=== PATIENT | female | born 1995 | race Caucasian/White ===

== ENCOUNTER 2020-10-11 11:51 | Emergency (ER) | payer SELFPAY ==
--- NOTE | 2020-10-11 11:58 | ED.GENADULT ---
HPI - General Adult General Chief complaint: Skin/Abscess/Foreign Body Stated complaint: Pos skin abcess Time Seen by Provider: 10/11/20 11:59 Source: patient Mode of arrival: ambulatory Limitations: no limitations History of Present Illness HPI narrative: 25-year-old female patient presents to the [facility] with complaints of a wound to the perineum area the past 2 days. Patient states is very sore and feels like it is getting worse. Denies any concerns for STDs at the time. Patient states she has had one of the sores previously in her rectum area. Related Data Allergies Allergy/AdvReac Type Severity Reaction Status Date / Time No Known Allergies Allergy Verified 10/11/20 12:04 Review of Systems Review of Systems: Narrative: CONSTITUTIONAL: Denies fever, chills, or sweats. EYES: Denies visual changes, redness, or discharge. ENT: Denies rhinorrhea, congestion, sore throat, or otalgia. CARDIOVASCULAR: Denies chest pain, palpitations, or edema. RESPIRATORY: Denies cough or dyspnea. GASTROINTESTINAL: Denies abdominal pain, nausea, vomiting, or diarrhea. GENITOURINARY: Denies dysuria or hematuria. SKIN: Denies rash or itching. Positive wound to perineal area x2 days MUSCULOSKELETAL: Denies back pain, joint pain, or myalgia. NEUROLOGIC: Denies headache, numbness, or weakness. PSYCHIATRIC: Denies anxiety or depression. PMFSH Comments At the time of my signature I agree with nursing past medical history, surgical, social, and family history. There is no relevant family history pertinent to the presenting complaint. Exam Narrative: Exam Narrative: GENERAL: Well-appearing, well-nourished, and in no acute distress. HEAD: Normocephalic, atraumatic. EYES: PERRLA and EOMI. ENT: Nares clear, no rhinorrhea or epistaxis. Mucous membranes moist. NECK: Supple. No lymphadenopathy CHEST: Clear to auscultation. No respiratory distress. HEART: Regular rate and rhythm. No murmur heard. Normal peripheral pulses. ABDOMEN: Soft, nontender, nondistended, normal active bowel sounds. EXTREMITIES: Normal range of motion. No edema. SKIN: Warm, dry, no rash. Patient has approximately 4 cm circular abscess noted between the rectum and the vaginal area in the perineum. There is no obvious drainage noted at this time the area is firm and erythemic with warmth present. NEURO: No focal deficits. Alert and oriented x3. Course Vital Signs Vital signs: Vital Signs Temperature 37.3 C 10/11/20 12:01 Pulse Rate 128 H 10/11/20 12:01 Respiratory Rate 16 10/11/20 12:01 Blood Pressure 152/85 H 10/11/20 12:01 Pulse Oximetry 99 10/11/20 12:01 Temperature 37.3 C 10/11/20 12:01 Pulse Rate 128 H 10/11/20 12:01 Respiratory Rate 16 10/11/20 12:01 Blood Pressure 152/85 H 10/11/20 12:01 Pulse Oximetry 99 10/11/20 12:01 Vital signs reviewed The patient has been informed that they may have pre-hypertension or Hypertension based on a BP reading in the department. I recommend that the patient call the primary care provider listed on their discharge instructions or a physician of their choice this week to arrange follow up for further evaluation of possible pre-hypertension or Hypertension Procedures Abscess I/D bartholin's gland: Date of Incision: 10/11/20 Time of Incision: 12:13 Side (if applicable): left Sedation/analgesia: none Local Anesthetic: lidocaine 1% Amount of anesthesia used (mL): 3.5 Technique: incised with #11 blade Irrigation: Yes Packing used?: none I&D Results: Pus and Blood Abcess I&D Additional Comments: The procedure was explained and verbal consent is obtained. The wound was anesthetized with 3.5ml of 1% lidocaine with good anesthesia. Sterile drape and prep are done. The fluctuant center was incised with #11 blade scalpel. A large amount of yellow pus and blood was expressed. The wound was probed for loculated area and irrigated with normal saline
[2020-10-11 12:01] VITALS: BP 152/85; PULSE 128; RESP 16; TEMP 37.3; O2SAT 99
== END 2020-10-11 12:33 | disposition home or self-care (01) ==
PROVIDERS: Emergency Provider Nurse Practitioner Family
DX: N75.0 Cyst of Bartholin's gland (principal); Z86.14 Personal history of Methicillin resistant Staphylococcus aureus infection
CPT/HCPCS: 56420; 87070; 87075; 87076; 87185; 87205; 99213; G0463

== ENCOUNTER 2025-01-29 01:02 | Emergency (ER) | payer OTHER, SELFPAY ==
[2025-01-29] VITALS (49 sets, daily range): BP systolic 106–150; BP diastolic 63–87; PULSE 63–124; RESP 13–26; TEMP 36.2–36.8; O2SAT 98–100
--- OUTSIDE RECORDS SUMMARY | 2025-01-29 01:04 | XMS_ITS | Clinical Summary ---
Author Organization [facility] Virtual Care Address [address] [place] [phone] Phone Care Team Providers Care Coning Machine Operator Name Role Phone Amelia Duckworth MD Primary Care Provider [phone] Allergies No known active allergies Medications erythromycin-chen zoyl peroxide (BENZAMYCIN) gel 06/21/2023 Ac tive buPROPion XL (WELLBUTRIN XL) 300 mg 24 hr tablet Take 1 tablet (300 mg total) by mouth daily 10/10/2024 Active Active Problems Problem Noted Date Diagnosed Date Acute intractable headache 03/21/2020 Social History Tobacco Use Types Packs/Day Years Used Date Smoking Tobacco: Never Smokeless Tobacco: Never Tobacco Cessation:Counseling Given: Not Answered Comments Unknown Sex and Gender Information Value Date Recorded Sex Assigned at Not on file 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 Gender Identity Not on file Sexual Orientation Not on file Obstetrics History Last Filed Vital Signs Vital Sign Reading Time Taken Comments Blood Pressure 133/75 10/22/2024 9:31 AM CDT Pulse 72 10/22/2024 9:31 AM CDT Temperature 36.6 C (97.8 F) 10/22/2024 9:31 AM CDT Respiratory Rate 20 10/22/2024 9:31 AM CDT Oxygen Saturation 96% 10/22/2024 9:31 AM CDT Inhaled Oxygen Concentration - - Weight 117 kg (258 lb) 10/22/2024 9:31 AM CDT Height 180.3 cm (5' 11) 10/22/2024 9:31 AM CDT Body Mass Index 35.98 10/22/2024 9:31 AM CDT Plan of Treatment Health Maintenance Due Date Last Done Comments Cervical Cancer Screening 1993 Depression Screening 1993 Hepatitis C Screening 1993 DTaP/Tdap/Td Vaccine (1 - Tdap) 2004 Varicella Vaccines (1 of 2 - 13+ 2-dose series) 2006 Hepatitis B Screening 2011 Regular Well Visit/Exam 18-64 2011 HPV Vaccines (1 - 3-dose SCD M series) 2020 Covid-19 Vaccine (3 - 2023-2 5 season) 2024 02/07/2021, 01/10/2021 Influenza Vaccine (#1) 2025 , 05/18/2022 Pneumococcal vaccine <65 Aged Out No longer eligible based on patient's age to complete this topic Insurance [employer] [employer] Address: [address] [phone] Care Teams Coning Machine Operator Relationship Specialty Start Date End Date Amelia Duckworth MD [address] [place] [id number] PCP - General Emergency Medicine 07/23/23
--- OUTSIDE RECORDS SUMMARY | 2025-01-29 01:04 | XMS_ITS | Clinical Summary ---
Author Organization [facility] [employer] Address [address] [place] [address] Care Team Providers Care Sales Order Administrator Name Role Phone Peyton Bojorquez APRN-TARRING MACHINE OPERATOR Unavailable Unavailable Source Comments [facility] [employer],non-owned Affiliates and Associated Physician Practices is amultiple site organization consisting of ambulatory clinics and hospital sitesin [place], [place], [place] and [place]. This disclosure is being madepursuant to the Care Everywhere program and may not contain all information available regarding this patient. Last updated 18.[facility] [employer] Allergies No known active allergies Medications * Be aware that medications may not be up to date on this document. Alwaysverify current medications with the patient. fluticasone propionate (FLONASE) 50 MCG/ACT nasal spray [place] 2 sprays into each nostril once daily Discontinue when symptoms resolve. 16 g 0 Active ibuprofen (MOTRIN) 800 MG tablet Take 1 tablet by mouth every 8 hours as needed for Pain (Take with food.) 30 tablet 0 Active HYDROcodone-mauro taminophen (NORCO) 5-325 MG tablet Take 1 tablet by mouth 2 times daily as needed for Pain 6 tablet 0 Active Active Problems Problem Noted Date Diagnosed Date Acute intractable headache 03/21/2020 Resolved Problems Problem Noted Date Diagnosed Date Resolved Date Acute otitis media 03/21/2020 0 Social History Tobacco Use Types Packs/Day Years Used Date Smoking Tobacco: Former Cigarettes Smokeless Tobacco: Never Alcohol Use Standard Drinks/Week Comments No 0 (1 standard drink = 0.6 oz pur e alcohol) Comments No Sex and Gender Information Value Date Recorded Sex Assigned at Not on file 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 Gender Identity Not on file Sexual Orientation Not on file Last Filed Vital Signs Vital Sign Reading Time Taken Comments Blood Pressure 140/84 03/21/2020 6:04 PM CDT Pulse 88 03/21/2020 6:04 PM CDT Temperature 36.7 C (98.1 F) 03/21/2020 6:04 PM CDT Respiratory Rate 18 03/21/2020 6:04 PM CDT Oxygen Saturation 100% 03/21/2020 6:04 PM CDT Inhaled Oxygen Concentration - - Weight 101.2 kg (223 lb) 03/21/2020 6:04 PM CDT Height 182.9 cm (6') 03/21/2020 6:04 PM CDT Body Mass Index 30.24 03/21/2020 6:04 PM CDT Plan of Treatment Health Maintenance Due Date Last Done Comments HIV SCREENING 2008 HEPATITIS C SCREENING 02/27/2011 DTAP/TDAP/TD VACCINES (1 - Tdap) 2012 HEPATITIS B VACCINE (1 of 3 - 19+ 3-dose series) 2012 HPV VACCINE (1 - 3-dose SCDM series) 2020 COVID-19 VACCINE (1 - 2023-2 5 season) 2024 DEPRESSION SCREENING 06/21/2024 INFLUENZA VACCINE (#1) 2025 ZOSTER VACCINE (1 of 2) 2043 HIB VACCINE Aged Out No longer eligi ble based on patient's age to complete this topic MENINGOCOCCAL (Group B) VACC INE SHARED DECISION-MAKING Aged Out No longer eligibl e based on patient's age to complete this topic MENINGOCOCCAL GROUPS A/C/Y/W VACCINE Aged Out No longer eligible b ased on patient's age to complete this topic PNEUMOCOCCAL VACCINE Aged Out No long er eligible based on patient's age to complete this topic Care Teams Sales Order Administrator Relationship Specialty Start Date End Date Peyton Bojorquez APRN-JOSE G Nurse Practitioner 06/28/14
--- NOTE | 2025-01-29 02:07 | ECG_ITS ---
Test Date: 2025-01-29 02:25:24 Measurements Intervals [place] Rate: 87 P: 15 IN: 143 QRS: 20 QRSD: 90 T: 19 QT: 381 QTc: 460 Interpretive Statements SINUS RHYTHM DELAYED PRECORDIAL R/S TRANSITION BASELINE ARTIFACT- I, II, III, AVR, AVL, AVF, V1-V6 BORDERLINE ECG No previous ECG available for comparison Electronically Signed On 01-29-2025 06:17:57 CDT by Sherwin Boyd D.O.
--- NOTE | 2025-01-29 02:14 | PC.NURSE ---
This RN called and spoke to Anisa from Poison Control and informed of pt condition. This RN was instructed to get an EKG q6hr, draw labs, preg test and to monitor for 18 hours at time of ingestion. This RN was also instructed to monitor for seizures. A fax was sent over more information. EDP notified.
[2025-01-29 02:22] LABS: Hematocrit 41.0 % (37.0-47.0); Hemoglobin 12.7 g/dL (12.0-15.0); Immature Granulocyte Percent A 0.2 % (0-0.5); Lymphocytes Absolute Auto 1.90 K/mm3 (0.9-3.2); Mean Corpuscular HGB Conc 31.0 g/dl (32-36); Mean Corpuscular Hemoglobin 26.1 pg (26-34); Mean Corpuscular Volume 84.2 fl (80-100); Nucleated Red Blood Cells Absolute Auto 0.000 K/mm3 (0.0-0.012); Nucleated Red Blood Cells Perc 0.0 % (0.0-0.2); Platelet Count Result 249 k/mm3 (150-375); Red Blood Count 4.87 M/mm3 (4.2-5.4); White Blood Count 8.2 K/mm3 (4.5-10.0)
--- OUTSIDE RECORDS SUMMARY | 2025-01-29 02:25 | XMS_ITS | Clinical Summary ---
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
--- OUTSIDE RECORDS SUMMARY | 2025-01-29 02:25 | XMS_ITS | Clinical Summary ---
Author Organization [facility] [employer] Address [address] [place] [address] Care Team Providers Care Strategy Specialist Name Role Phone Peyton Bojorquez APRN-OPERATOR TECHNICIAN Unavailable Unavailable Source Comments [facility] [employer],non-owned Affiliates and Associated Physician Practices is amultiple site organization consisting of ambulatory clinics and hospital sitesin [place], [place], [place]. This disclosure is being madepursuant to the Care Everywhere program and may not contain all information available regarding this patient. Last updated 18.[facility] [employer] Allergies No known active allergies Medications * Be aware that medications may not be up to date on this document. Alwaysverify current medications with the patient. 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
[2025-01-29 02:26] LABS: BEDSIDEPREGUCG Negative (Negative)
--- NOTE | 2025-01-29 02:26 | PC.NURSE ---
Poison control said pt is below toxic level. 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
[2025-01-29 02:29] LABS: Add Urine Microscopic? NO; Appearance Urine Clear (Clear); Glucose Urine UA Negative (Negative); Leukocyte Esterase Ur Negative LEU/UL (Negative); Nitrate Urine Negative (Negative); Specific Grav Ur 1.011 (1.001-1.035)
--- NOTE | 2025-01-29 02:40 | ED.OVERDOSE ---
HPI - Overdose General Chief Complaint: Overdose <Miguel A Wallace MD - Last Filed: 01/29/25 07:13> Stated Complaint: i think i took 4 extra wellbutrin <Miguel A Wallace MD - Last Filed: 01/29/25 07:13> Time Seen by Provider: 01/29/25 01:48 <Miguel A Wallace MD - Last Filed: 01/29/25 07:13> History of Present Illness HPI Narrative: 29-year-old female with history of depression for which he takes Wellbutrin. Patient presents to the emergency department after thinking she accidentally took too much of her home Wellbutrin instead of her Tylenol/ibuprofen at home. She states she keeps her medications in the same compartment and took 4 pills and this happened approximately 7:00 p.m.. She potentially ingested for extended release Wellbutrin 300 mg tablets although she states that they might have been some ibuprofen instead. She took total of 4 tablets nonetheless. She called poison Control and was told to come to the hospital. She has no symptoms at this time and otherwise feels well. Denies any chest pain, shortness a breath, nausea vomiting, fever, chills, headache, tremulousness or shaking, twitching. No other co ingestions. Denies suicidality or homicidality. No psychiatric symptoms. <Miguel A Wallace MD - Last Filed: 01/29/25 07:13> Related Data Home Medications: Home Medications ?Medication ?Instructions ?Recorded ?Confirmed ?Last Taken ?Type bupropion HCl 300 mg 24 hr tablet, mg PO 01/29/25 Unknown History extended release <Miguel A Wallace MD - Last Filed: 01/29/25 07:13> Allergies/Adverse Reactions: Allergies Allergy/AdvReac Type Severity Reaction Status Date / Time No Known Allergies Allergy Verified 01/29/25 01:05 <Miguel A Wallace MD - Last Filed: 01/29/25 07:13> Review of Systems Review of Systems: As reviewed above in HPI <Miguel A Wallace MD - Last Filed: 01/29/25 07:13> [facility] Social History Social History: Social History Substance use type: marijuana <Miguel A Wallace MD - Last Filed: 01/29/25 07:13> Exam Narrative: GENERAL: [Well-appearing, well-nourished, and in no acute distress.] HEAD: [Normocephalic, atraumatic.] EYES: [PERRLA and EOMI.] ENT: Nares clear, no rhinorrhea or epistaxis. Mucous membranes moist. NECK: Supple. CHEST: [Clear to auscultation. No respiratory distress.] HEART: [Regular rate and rhythm]. No murmur heard. [Normal peripheral pulses.] ABDOMEN: [Soft, nondistended], [nontender], [No rigidity or guarding] EXTREMITIES: Normal range of motion. [No edema.] SKIN: Warm, dry, no rash. NEURO: [No focal deficits]. Alert and oriented [x3.] PSYCH: [Normal mood and affect.] <MiguelA Wallace MD - Last Filed: 01/29/25 07:13> Course Vital Signs Vital signs: Vital Signs Temperature 36.2 C L 01/29/25 01:03 Pulse Rate 124 H 01/29/25 01:03 Respiratory Rate 18 01/29/25 01:03 Blood Pressure 150/87 H 01/29/25 01:03 Pulse Oximetry 100 01/29/25 01:03 Oxygen Delivery Room Air 01/29/25 01:03 Temperature 36.8 C 01/29/25 01:50 Pulse Rate 89 01/29/25 12:15 Respiratory Rate 23 H 01/29/25 12:15 Blood Pressure 119/69 01/29/25 12:01 Pulse Oximetry 99 01/29/25 12:15 Oxygen Delivery Room Air 01/29/25 01:49 <Miguel A Wallace MD - Last Filed: 01/29/25 07:13> Vital Signs Temperature 36.2 C L 01/29/25 01:03 Pulse Rate 124 H 01/29/25 01:03 Respiratory Rate 18 01/29/25 01:03 Blood Pressure 150/87 H 01/29/25 01:03 Pulse Oximetry 100 01/29/25 01:03 Oxygen Delivery Room Air 01/29/25 01:03 Temperature 36.8 C 01/29/25 01:50 Pulse Rate 89 01/29/25 12:15 Respiratory Rate 23 H 01/29/25 12:15 Blood Pressure 119/69 01/29/25 12:01 Pulse Oximetry 99 01/29/25 12:15 Oxygen Delivery Room Air 01/29/25 01:49 <Santos Botello MD - Last Filed: 01/29/25 13:45> MDM - Overdose MDM Narrative Medical decision making narrative: 29-year-old female with history of depression for which he takes Wellbutrin. Patient presents to the emergency department after thinking she accidentally took too much of her home Wellbutrin instead of her Tylenol/ibuprofen at home. She states she keeps her medications in the same compartment and took 4 pills and this happened approximately 7:00 p.m.. She potentially ingested for extended release Wellbutrin 300 mg tablets although she states that they might have been some ibuprofen instead. She took total of 4 tablets nonetheless. She called poison Control and was told to come to the hospital. She has no symptoms at this time and otherwise feels well. Denies any chest pain, shortness a breath, nausea vomiting, fever, chills, headache, tremulousness or shaking, twitching. No other co ingestions. Denies suicidality or homicidality. No psychiatric symptoms. Patient initially was tachycardic in triage in hypertensive in triage but this resolved without any interventions just placing her into the examination room. Blood pressure 111/81, pulse rate 93. No tachypnea fever, hypoxia. She has an unremarkable physical examination and given the potential ingestion of 1200 mg of extended release Wellbutrin potential for seizures or other complications such as metabolic derangements or dehydration or possible. Poison Control was contacted with recommendations for laboratory studies an EKG as well as an 18 hour observation. From time of ingestion placing her at approximately 1:00 p.m. for observation. Laboratory studies drawn, IV access placed. EKG obtained. Laboratory studies are unrevealing. Patient remains hemodynamically stable and without symptoms. We discussed with poison Control again and they wish to have a complete 18 hours observation. Patient care signed over to oncoming ER physician pending completion of observation. At 1:00 p.m. for safe discharge home. <Miguel A Wallace MD - Last Filed: 01/29/25 07:13> 29-year-old female with history of depression for which he takes Wellbutrin. Patient presents to the emergency department after thinking she accidentally took too much of her home Wellbutrin instead of her Tylenol/ibuprofen at home. She states she keeps her medications in the same compartment and took 4 pills and this happened approximately 7:00 p.m.. She potentially ingested for extended release Wellbutrin 300 mg tablets although she states that they might have been some ibuprofen instead. She took total of 4 tablets nonetheless. She called poison Control and was told to come to the hospital. She has no symptoms at this time and otherwise feels well. Denies any chest pain, shortness a breath, nausea vomiting, fever, chills, headache, tremulousness or shaking, twitching. No other co ingestions. Denies suicidality or homicidality. No psychiatric symptoms. Patient initially was tachycardic in triage in hypertensive in triage but this resolved without any interventions just placing her into the examination room. Blood pressure 111/81, pulse rate 93. No tachypnea fever, hypoxia. She has an unremarkable physical examination and given the potential ingestion of 1200 mg of extended release Wellbutrin potential for seizures or other complications such as metabolic derangements or dehydration or possible. Poison Control was contacted with recommendations for laboratory studies an EKG as well as an 18 hour observation. From time of ingestion placing her at approximately 1:00 p.m. for observation. Laboratory studies drawn, IV access placed. EKG obtained. Laboratory studies are unrevealing. Patient remains hemodynamically stable and without symptoms. We discussed with poison Control again and they wish to have a complete 18 hours observation. Patient care signed over to oncoming ER physician pending completion of observation. At 1:00 p.m. for safe discharge home. Patient has been observed in the emergency department without symptoms. The patient is not suicidal or homicidal patient will be discharged home to follow-up with care provider <Santos Botello MD - Last Filed: 01/29/25 13:45> Medical Records Attestation: I reviewed the patient's medical records. <Miguel A Wallace MD - Last Filed: 01/29/25 07:13> Lab Data Attestation: I reviewed the patient's lab results. <Miguel A Wallace MD - Last Filed: 01/29/25 07:13> Result diagrams: 01/29/25 02:12 01/29/25 02:12 <Miguel A Wallace MD - Last Filed: 01/29/25 07:13> Labs: Lab Results 01/29/25 01/29/25 01/29/25 Range/Units 02:12 02:21 02:23 WBC 8.2 (4.5-10.0) K/mm3 RBC 4.87 (4.2-5.4) M/mm3 Hgb 12.7 (12.0-15.0) g/dL Hct 41.0 (37.0-47.0) % MCV 84.2 (80-100) fl MCH 26.1 (26-34) pg MCHC 31.0 L (32-36) g/dl RDW 14.5 (11.5-14.5) % Plt Count 249 (150-375) k/mm3 MPV 9.9 (7.4-10.4) fl Immature Gran % (Auto) 0.2 (0-0.5) % Neut % (Auto) 68.1 (45.5-73.1) % Lymph % (Auto) 23.2 (18.3-44.2) % [place] % (Auto) 7.1 (2.6-8.5) % Eos % (Auto) 0.9 (0-4.4) % Baso % (Auto) 0.5 (0.2-1.2) % Lymph # (Auto) 1.90 (0.9-3.2) K/mm3 [place] # (Auto) 0.6 (0.1-0.6) K/mm3 Eos # (Auto) 0.1 (0-0.3) K/mm3 Baso # (Auto) 0.0 (0.0-0.1) K/mm3 Abs Immat Gran (auto) 0.02 (0.00-0.031) K/mm3 Absolute Neuts (auto) 5.6 (1.3-6.7) K/mm3 Absolute Nucleated RBC 0.000 (0.0-0.012) K/mm3 Nucleated RBC % 0.0 (0.0-0.2) % Sodium 136 L (137-145) mmol/L Potassium 3.1 L (3.4-5.0) mmol/L Chloride 105 (98-107) mmol/L Carbon Dioxide 24 (22-30) mmol/L Anion Gap 7 (4-12) mmol/L BUN 9 (7-17) mg/dL Creatinine 0.68 L (0.7-1.0) mg/dL Estim Creat Clear Calc 141 ml/min Estimated GFR > 60 (59 - ) Glucose 109 (65-110) mg/dL Calcium 8.7 (8.4-10.2) mg/dL Magnesium 2.0 (1.6-2.3) mg/dL Total Bilirubin 0.4 (0.2-1.3) mg/dL AST 27 (14-36) U/L ALT 17 (6-35) U/L Alkaline Phosphatase 100 (38-126) U/L Total Protein 7.0 (6.3-8.2) g/dL Albumin 4.1 (3.5-5.1) g/dL TSH 3.110 (0.465-4.680) uIU/mL Urine Color Yellow (Yellow) Urine Appearance Clear (Clear) Urine pH 6.5 (5.0-9.0) Ur Specific [place] 1.011 (1.001-1.035) Urine Protein Negative (Negative) mg/dL Urine Glucose (UA) Negative (Negative) mg/dL Urine Ketones 1+ H (Negative) mg/dL Ur Blood (Man) Negative (Negative) Urine Nitrate Negative (Negative) Urine Bilirubin Negative (Negative) Urine Urobilinogen 1.0 (<2.0) mg/dL Leukocyte Esterase Rfl Negative (Negative) JOSE ALFREDO/UL POC Urine HCG, Qual Negative (Negative) Salicylates < 1.0 L (2-20) mg/dL Urine Opiates Screen Negative (Negative) Urine Methadone Screen Negative (Negative) Acetaminophen < 10 L (10-30) ug/mL Ur Barbiturates Screen Negative (Negative) Ur Phencyclidine Scrn Negative (Negative) Ur Amphetamine Screen Negative (Negative) U Benzodiazepines Scrn Negative (Negative) Urine Cocaine Screen Negative (Negative) U Cannabinoids Screen Positive A (Negative) Ethyl Alcohol < 10 (<10) mg/dL <Miguel A Wallace MD - Last Filed: 01/29/25 07:13> Lab Results 01/29/25 01/29/25 01/29/25 Range/Units 02:12 02:21 02:23 WBC 8.2 (4.5-10.0) K/mm3 RBC 4.87 (4.2-5.4) M/mm3 Hgb 12.7 (12.0-15.0) g/dL Hct 41.0 (37.0-47.0) % MCV 84.2 (80-100) fl MCH 26.1 (26-34) pg MCHC 31.0 L (32-36) g/dl RDW 14.5 (11.5-14.5) % Plt Count 249 (150-375) k/mm3 MPV 9.9 (7.4-10.4) fl Immature Gran % (Auto) 0.2 (0-0.5) % Neut % (Auto) 68.1 (45.5-73.1) % Lymph % (Auto) 23.2 (18.3-44.2) % [place] % (Auto) 7.1 (2.6-8.5) % Eos % (Auto) 0.9 (0-4.4) % Baso % (Auto) 0.5 (0.2-1.2) % Lymph # (Auto) 1.90 (0.9-3.2) K/mm3 [place] # (Auto) 0.6 (0.1-0.6) K/mm3 Eos # (Auto) 0.1 (0-0.3) K/mm3 Baso # (Auto) 0.0 (0.0-0.1) K/mm3 Abs Immat Gran (auto) 0.02 (0.00-0.031) K/mm3 Absolute Neuts (auto) 5.6 (1.3-6.7) K/mm3 Absolute Nucleated RBC 0.000 (0.0-0.012) K/mm3 Nucleated RBC % 0.0 (0.0-0.2) % Sodium 136 L (137-145) mmol/L Potassium 3.1 L (3.4-5.0) mmol/L Chloride 105 (98-107) mmol/L Carbon Dioxide 24 (22-30) mmol/L Anion Gap 7 (4-12) mmol/L BUN 9 (7-17) mg/dL Creatinine 0.68 L (0.7-1.0) mg/dL Estim Creat Clear Calc 141 ml/min Estimated GFR > 60 (59 - ) Glucose 109 (65-110) mg/dL Calcium 8.7 (8.4-10.2) mg/dL Magnesium 2.0 (1.6-2.3) mg/dL Total Bilirubin 0.4 (0.2-1.3) mg/dL AST 27 (14-36) U/L ALT 17 (6-35) U/L Alkaline Phosphatase 100 (38-126) U/L Total Protein 7.0 (6.3-8.2) g/dL Albumin 4.1 (3.5-5.1) g/dL TSH 3.110 (0.465-4.680) uIU/mL Urine Color Yellow (Yellow) Urine Appearance Clear (Clear) Urine pH 6.5 (5.0-9.0) Ur Specific [place] 1.011 (1.001-1.035) Urine Protein Negative (Negative) mg/dL Urine Glucose (UA) Negative (Negative) mg/dL Urine Ketones 1+ H (Negative) mg/dL Ur Blood (Man) Negative (Negative) Urine Nitrate Negative (Negative) Urine Bilirubin Negative (Negative) Urine Urobilinogen 1.0 (<2.0) mg/dL Leukocyte Esterase Rfl Negative (Negative) JOSE ALFREDO/UL POC Urine HCG, Qual Negative (Negative) Salicylates < 1.0 L (2-20) mg/dL Urine Opiates Screen Negative (Negative) Urine Methadone Screen Negative (Negative) Acetaminophen < 10 L (10-30) ug/mL Ur Barbiturates Screen Negative (Negative) Ur Phencyclidine Scrn Negative (Negative) Ur Amphetamine Screen Negative (Negative) U Benzodiazepines Scrn Negative (Negative) Urine Cocaine Screen Negative (Negative) U Cannabinoids Screen Positive A (Negative) Ethyl Alcohol < 10 (<10) mg/dL <Santos Botello MD - Last Filed: 01/29/25 13:45> Discharge Plan Discharge Clinical Impression: Accidental drug ingestion <Miguel A Wallace MD - Last Filed: 01/29/25 07:13> Patient Disposition: Home <Miguel A Wallace MD - Last Filed: 01/29/25 07:13> Condition: Stable <Miguel A Wallace MD - Last Filed: 01/29/25 07:13> Instructions: Antibiotic Form, Adult Overdose (ED) <Miguel A Wallace MD - Last Filed: 01/29/25 07:13> Patient Language: Macedonian <Miguel A Wallace MD - Last Filed: 01/29/25 07:13> Prescriptions: No Action bupropion HCl 300 mg tablet extended release 24 hr PO <Miguel A Wallace MD - Last Filed: 01/29/25 07:13> Follow-up/Referrals: UNKNOWN,DOCTOR [Primary Care Provider] - <Miguel A Wallace MD - Last Filed: 01/29/25 07:13> Stand Alone Forms: Work/School Release IP <Miguel A Wallace MD - Last Filed: 01/29/25 07:13> Time of Disposition: 13:40 <Miguel A Wallace MD - Last Filed: 01/29/25 07:13> 13:40 <Santos Botello MD - Last Filed: 01/29/25 13:45>
[2025-01-29 02:49] LABS: Alanine Aminotransferase 17 U/L (6-35); Albumin Level 4.1 g/dL (3.5-5.1); Alkaline Phosphatase 100 U/L (38-126); Anion Gap 7 mmol/L (4-12); Aspartate Amino Transferase 27 U/L (14-36); Bilirubin,Total 0.4 mg/dL (0.2-1.3); Blood Urea Nitrogen 9 mg/dL (7-17); Calcium 8.7 mg/dL (8.4-10.2); Carbon Dioxide 24 mmol/L (22-30); Chloride 105 mmol/L (98-107); Estimated CRCL calculation 141 ml/min; Estimated Glomerular Filt Rate > 60; Glucose 109 mg/dL (65-110); Magnesium 2.0 mg/dL (1.6-2.3); Potassium 3.1 mmol/L (3.4-5.0); Sodium 136 mmol/L (137-145); Total Protein 7.0 g/dL (6.3-8.2)
--- NOTE | 2025-01-29 02:57 | PC.NURSE ---
This RN talked to Jennifer and closed [place] poison control case on pt. [place] poison control case still open.
[2025-01-29 03:19] LABS: Thyroid Stimulating Hormone 3.110 uIU/mL (0.465-4.680)
[2025-01-29 03:33] LABS: Acetaminophen < 10 ug/mL (10-30); Salicylate < 1.0 mg/dL (2-20)
[2025-01-29 04:17] LABS: Cannabinoid Screen Urine Positive (Negative)
--- NOTE | 2025-01-29 05:19 | PC.NURSE ---
This RN called and spoke to Anisa from [place] [facility] and gave update on pt status. Anisa informed that the pt should stay the full 18 hour observation time with a repeat EKG after 6 hours. EDP notified. Pt VSS and in NAD.
== END 2025-01-29 14:54 | disposition home or self-care (01) ==
PROVIDERS: Emergency Provider Student in an Organized Health Care Education/Training Program
DX: T43.291A Poisoning by other antidepressants, accidental (unintentional), initial encounter (principal); F32.A Depression, unspecified; R94.31 Abnormal electrocardiogram [ECG] [EKG]
CPT/HCPCS: 36415; 80053; 80143; 80179; 80307; 81003; 81025; 82077; 83735; 84443; 85025; 93005; 99284

== ENCOUNTER 2025-04-26 12:22 | Outpatient (CLI) | payer OTHER, SELFPAY ==
--- NOTE | 2025-04-26 | ECG_ITS ---
Test Date: 2025-04-26 13:06:52 Measurements Intervals [place] Rate: 65 P: 54 [place]: 142 QRS: 47 QRSD: 82 T: 37 QT: 403 QTc: 421 Interpretive Statements SINUS RHYTHM POSSIBLE LEFT ATRIAL ENLARGEMENT [-0.1mV P-WAVE IN V1/V2] Compared to ECG 01/29/2025 02:25:24 No significant changes Electronically Signed On 04-26-2025 13:36:55 CONTRACT SPECIALIST by Roge Alan M.D.
--- OUTSIDE RECORDS SUMMARY | 2025-04-26 19:32 | XMS_ITS | Clinical Summary ---
Author Organization [facility] Virtual Care Address [address] [place] [id number] Phone Care Team Providers Care Real Estate Professional Name Role Phone Amelia Duckworth MD Primary Care Provider [phone] Allergies No known active allergies Medications erythromycin-b enzoyl peroxide (BENZAMYCIN) gel 4 Active buPROPion XL (WELLBUTRIN XL) 300 mg 24 hr tablet Take 1 tablet (300 mg total) by mouth daily 5 Active chlorhexidine (PERIDEX) 0.12 % oral rinseIndicatio ns:Mouth Infection Prevention Swish and spit 15mL of solution for 30 seconds two times daily after toothbrushing for 4 days 118 mL 5 Active lidocaine viscous (XYLOCAINE) 2 % solutionIndica tions:Dental caries,Pain, dental Apply 5-10 mL to the mouth or throat 4 (four) times a day as needed (swish and spit) for up to 5 days 100 mL 5 025 Active Problems Problem Noted Date Diagnosed Date Acute intractable headache 03/21/2020 Encounters Date Type Department Care Team Description 04/16/2025 5:15 PM CDT Office Visit [facility] at [address] [id number] Josefina Mcpherson NP Dental caries (Primary Dx); Pain, dental from Last 3 Months Social History Tobacco Use Types Packs/Day Years Used Date Smoking Tobacco: Never Smokeless Tobacco: Never Tobacco Cessation:Counseling Given: Not Answered Comments Unknown Sex and Gender Information Value Date Recorded Sex Assigned at Not on file 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 Gender Identity Not on file Sexual Orientation Not on file Last Filed Vital Signs Vital Sign Reading Time Taken Comments Blood Pressure 122/79 04/16/2025 5:12 PM CDT Pulse 81 04/16/2025 5:12 PM CDT Temperature 36.8 C (98.2 F) 04/16/2025 5:12 PM CDT Respiratory Rate 18 04/16/2025 5:12 PM CDT Oxygen Saturation 99% 04/16/2025 5:12 PM CDT Inhaled Oxygen Concentration - - Weight 114.3 kg (252 lb) 04/16/2025 5:12 PM CDT Height 180.3 cm (5' 11) 10/22/2024 9:31 AM CDT Body Mass Index 35.15 10/22/2024 9:31 AM CDT Plan of Treatment Health Maintenance Due Date Last Done Comments Cervical Cancer Screening 1993 Depression Screening 1993 Hepatitis C Screening 1993 DTaP/Tdap/Td Vaccine (1 - Tdap) 2004 Varicella Vaccines (1 of 2 - 13+ 2-dose series) 2006 Hepatitis B Screening 2011 Regular Well Visit/Exam 18-64 2011 HPV Vaccines (1 - 3-dose SCD M series) 2020 Covid-19 Vaccine (3 - 2024-2 6 season) 2025 02/07/2021, 01/10/2021 Influenza Vaccine (#1) 2025 , 05/18/2022 Pneumococcal vaccine <65 Aged Out No longer eligible based on patient's age to complete this [place] [address] [employer] Address: [facility] [id number] [phone] Care Teams Real Estate Professional Relationship Specialty Start Date End Date Amelia Duckworth MD [address] [place] [id number] PCP - General Emergency Medicine 07/23/23
--- OUTSIDE RECORDS SUMMARY | 2025-04-26 19:32 | XMS_ITS | Clinical Summary ---
Author Organization [facility] Address [address] [place] [address] Care Team Providers Care Agriculture Department Chair Name Role Phone Peyton Bojorquez APRN-H[employer] ROLLER Unavailable Unavailable Source Comments [facility],non-owned Affiliates and Associated Physician Practices is amultiple site organization consisting of ambulatory clinics and hospital sitesin [place], [place], [place] and [place]. This disclosure is being madepursuant to the Care Everywhere program and may not contain all information available regarding this patient. Last updated 18.[facility] Allergies No known active allergies Medications * Be aware that medications may not be up to date on this document. Alwaysverify current medications with the patient. 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
== END 2025-04-26 12:23 | disposition home or self-care (01) ==
PROVIDERS: PCP Emergency Medicine
DX: F90.2 Attention-deficit hyperactivity disorder, combined type (principal); R94.31 Abnormal electrocardiogram [ECG] [EKG]
CPT/HCPCS: 93005